=== PATIENT | male | born 1965 | race Caucasian/White ===

== ENCOUNTER 2017-12-28 01:00 | Emergency (ER) | payer OTHER, BC ==
[2017-12-28 01:08] VITALS: BP 142/98
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
== END 2017-12-28 02:30 | disposition home or self-care (01) ==
LOC: ER 01:00
DX: Z02.89 Encounter for other administrative examinations (principal); V89.2XXA Person injured in unspecified motor-vehicle accident, traffic, initial encounter
CPT/HCPCS: 99281